=== PATIENT | male | born 1960 | race Caucasian/White ===

== ENCOUNTER 2019-11-16 16:56 | Observation (INO) ==
[2019-11-16] MEDS ORDERED: VANCOMYCIN INJ 1,000 MG in SODIUM CHLORIDE 0.9% 250 ML IV STA (17:41)
[2019-11-16] MEDS ORDERED: VANCOMYCIN 1,000 MG VIAL ONE (18:14)
[2019-11-16 18:22] LABS: Basophils # 0.1 10*3/uL (0.0-0.2); Basophils % 0.5 % (0.0-0.8); Eosinophils # 0.4 10*3/uL (0.0-0.87); Eosinophils % 2.8 % (0.00-10.9); Hematocrit 43.6 VOL% (42.0-52.0); Hemoglobin 14.7 GM/DL (14.0-18.0); Immature Granulocytes % 0.5 %; Immature Granulocytes Absolute 0.07 #; Lymphocytes # 2.1 10*3/uL (1.4-4.0); Lymphocytes % 16.6 % (21.2-54.2); Mean Corpuscular HGB Conc 33.7 GM/DL (32-36); Mean Platelet Volume 8.5 FL (9.6-12.0); Monocytes % 6.3 % (1.7-12.7); Neutrophils % 73.3 % (38.7-73.9); Platelet Count 258 T/CUMM (130-400); Red Blood Count 4.45 MC/CUMM (3.8-5.5); Red Cell Distribution Width 12.6 % (9.3-17.3); White Blood Count 12.8 T/CUMM (4-12)
[2019-11-16 18:47] LABS: Albumin 3.7 G/DL (3.4-5.0); Bilirubin,Total 0.7 MG/DL (0.2-1.0); Calcium 8.8 MG/DL (8.5-10.1); Osmolality,Calculated 274.5 MOS/KG (273-304); Total Protein 7.5 G/DL (6.4-8.3)
[2019-11-16] MEDS ORDERED: DEXTROSE 50% 25 GM/50 ML VIAL IV PRN (20:07)
[2019-11-16] MEDS ORDERED: GLUCAGON 1 MG VIAL IM PRN (20:07)
[2019-11-16] MEDS ORDERED: NICOTINE 21 MG/24 HR PATCH TRANSDERM PRN (20:07)
[2019-11-16] MEDS ORDERED: ACETAMINOPHEN 325 MG TABLET PO PRN (20:07)
[2019-11-16] MEDS ORDERED: ONDANSETRON 4 MG/2 ML VIAL IV PRN (20:07)
[2019-11-16] MEDS ORDERED: hydrALAZINE 20 MG/1 ML VIAL IV PRN (20:07)
[2019-11-17] MEDS: VANCOMYCIN INJ 1,000 MG in SODIUM CHLORIDE 0.9% 250 ML IV SCH ×2 (05:35→18:50)
[2019-11-17 05:56] LABS: Basophils # 0.1 10*3/uL (0.0-0.2); Basophils % 0.5 % (0.0-0.8); Eosinophils # 0.3 10*3/uL (0.0-0.87); Eosinophils % 3.3 % (0.00-10.9); Hematocrit 40.2 VOL% (42.0-52.0); Hemoglobin 14.1 GM/DL (14.0-18.0); Immature Granulocytes % 0.3 %; Immature Granulocytes Absolute 0.03 #; Mean Corpuscular HGB Conc 35.1 GM/DL (32-36); Mean Corpuscular Volume 95.7 FL (87-102); Mean Platelet Volume 8.4 FL (9.6-12.0); Monocytes % 4.6 % (1.7-12.7); Neutrophils % 80.3 % (38.7-73.9); Platelet Count 213 T/CUMM (130-400); Red Cell Distribution Width 12.5 % (9.3-17.3); White Blood Count 9.4 T/CUMM (4-12)
[2019-11-17] MEDS ORDERED: BUPIVACAINE 0.5% 50 ML VIAL ONE (10:54)
[2019-11-17] MEDS ORDERED: LACTATED RINGERS 1,000 ML IV SCH (11:30)
[2019-11-17] MEDS ORDERED: MORPHINE 4 MG/1 ML VIAL IV PRN (11:55)
[2019-11-17] MEDS ORDERED: MIDAZOLAM 2 MG/2 ML VIAL ONE (12:07)
[2019-11-17] MEDS ORDERED: SEVOFLURANE 1 UNIT/15 MINUTE INH ONE (12:07)
[2019-11-17] MEDS ORDERED: LIDOCAINE 2% 5 ML VIAL ONE (12:07)
[2019-11-17] MEDS ORDERED: fentaNYL 100 MCG/2 ML VIAL ONE (12:07)
[2019-11-17] MEDS ORDERED: PHENYLEPHRINE 1 MG/10 ML SYRINGE IV ONE (12:07)
[2019-11-17] MEDS ORDERED: propofoL 200 MG/20 ML VIAL IV ONE (12:07)
[2019-11-17] MEDS ORDERED: KETOROLAC 30 MG/1 ML VIAL ONE (12:07)
[2019-11-17] MEDS ORDERED: DIPH/TET/ACEL PERT BOOSTER VACCINE 0.5 ML VIAL IM ONE (12:08)
[2019-11-17] MEDS ORDERED: ONDANSETRON 4 MG/2 ML VIAL IV PRN (12:30)
[2019-11-17] MEDS ORDERED: HYDROmorphone 2 MG/1 ML VIAL IV PRN (12:30)
[2019-11-18] MEDS: VANCOMYCIN INJ 1,000 MG in SODIUM CHLORIDE 0.9% 250 ML IV SCH ×2 (05:20→18:08)
[2019-11-18 06:30] LABS: Apearance,Urine CLEAR (Clear); Bilirubin,Urine Negative (Negative); Blood, Urine Negative (Negative); Glucose,Urine (UA) Negative (Negative); Ketones,Urine Negative (Negative); Mucus,Urine Occasional /LPF (Occasional); Nitrite,Urine Negative (Negative); Protein,Urine Negative; RBC,Urine 3 /HPF (0-4); Urine Color Yellow (Yellow); Urine Specific Gravity 1.011 (1.001-1.035); Urine Urobilinogen < 2.0 EU/DL (0.2-1.0); WBC,Urine 3 /HPF (0-6)
[2019-11-18 07:04] LABS: Risk Ratio 1.97
[2019-11-19 05:55] LABS: Basophils # 0.1 10*3/uL (0.0-0.2); Basophils % 0.6 % (0.0-0.8); Eosinophils # 0.4 10*3/uL (0.0-0.87); Eosinophils % 4.6 % (0.00-10.9); Hematocrit 39.2 VOL% (42.0-52.0); Hemoglobin 13.3 GM/DL (14.0-18.0); Immature Granulocytes % 0.5 %; Immature Granulocytes Absolute 0.04 #; Lymphocytes # 1.7 10*3/uL (1.4-4.0); Lymphocytes % 21.6 % (21.2-54.2); Mean Corpuscular HGB Conc 33.9 GM/DL (32-36); Mean Platelet Volume 8.7 FL (9.6-12.0); Monocytes % 6.7 % (1.7-12.7); Platelet Count 233 T/CUMM (130-400); Red Cell Distribution Width 12.3 % (9.3-17.3); White Blood Count 8.1 T/CUMM (4-12)
[2019-11-19] MEDS: VANCOMYCIN INJ 1,000 MG in SODIUM CHLORIDE 0.9% 250 ML IV SCH (06:32)
[2019-11-19 06:33] LABS: Calcium 8.6 MG/DL (8.5-10.1); Osmolality,Calculated 278.4 MOS/KG (273-304)
[2019-11-19 07:21] LABS: Anisocytosis 1+; Band Neutrophils 3 % (0-10); Eosinophils 5 % (0-10); Hypochromasia 2+; Lymphocytes 20 % (20-55); Macrocytosis 1+; Platelet Estimate Normal; Polychromasia 2+; Segmented Neutrophils 65 % (50-85); Total Cells Counted 100
[2019-11-19 07:31] VITALS: BP 141/65
== END 2019-11-19 14:54 | disposition home or self-care (01) ==
LOC: N.EDINP 16:56 → N.ED 16:56 → SUATTDRO 20:07 → N.3E 22:00 → N.EDINP 22:00
PROVIDERS: ADMIT Internal Medicine; ATTEND Emergency Medicine